=== PATIENT | male | born 1980 | race American Indian/Alaskan Native ===

== ENCOUNTER 2022-02-08 22:37 | Emergency (ER) | payer OTHER ==
[~2022-02-08] VITALS: Ht 180.3 cm; Wt 99.8 kg
== END 2022-02-08 23:54 | disposition home or self-care (01) ==
LOC: ER 22:37
DX: S71.112A Laceration without foreign body, left thigh, initial encounter (principal); F17.200 Nicotine dependence, unspecified, uncomplicated; W22.8XXA Striking against or struck by other objects, initial encounter; Z23 Encounter for immunization
CPT/HCPCS: 90714